=== PATIENT | female | born 1940 | race Caucasian/White ===

== ENCOUNTER 2017-10-20 11:09 | Day surgery (SDC) | payer MEDICARE, OTHER ==
[~2017-10-20] VITALS: Ht 160 cm; Wt 81.3 kg
[~2017-10-20 11:09] MED LIST: ACCU-CHEK COMB1 EACH MC; ACEDIPPM PO; ALBU.083IS IH; ALBU90OI INH; ASPI81CH PO; ASPI81EC; ASPI81EC PO; C PAP; CALC1.25T PO; CARV6.25 PO; CEFP200 PO; CHOL10002 PO; CILO50 PO; CIPR500 PO; CLOB.05TC TP; CLOP75 PO; DIPH50 PO; DOCU100 PO; DULO30 PO; Desyrel50 MG; ENAL10; ENAL10 PO; ESCI10; ESCI10 PO; ESTR.05P SL; ESTR.05PBW TOP; ESTR1; ESTROGEN; ESZO3 PO; FISH1000 PO; FLUC100 PO; FLUSAL1005; FLUSAL1005 IH; FLUSAL2505 IH; FLUSAL2505 INH; FLUZONE HI180 MCG/03; GEMF600; GEMF600 PO; GLUCAGON IM; GLUCOSAMINE1000 MG PO; GLYMET5; HYDACE5 PO; HYDACE5325 PO; HYDCHL25 PO; INS70/30PN; INSDET100 SQ; INSLI100I SC; INSULANI; INSULANI SC; INSULANPEN SC; LEVSOD125; LEVSOD125 PO; LISI20 PO; LOVA20 PO; METF500 PO; MIRAPEX PO; MULTI VITAMIN1 EACH PO; MULTIVITAMIN; MULVIT PO; MULVITA PO; NYST100P TOP; Norco 5-325 Ta1 EACH PO; OXYACE5T PO; PHENA200 PO; POLY500 PO; POTCHL20ER PO; PRAM.5 PO; PRED20 PO; PROG100 PO; PROM25 PO; Percocet 5-3251 EACH PO; SULTRIDS PO; TEMA30 PO; TIMO.5OPG; TIMO.5OPSO OD; TIMO.5OPSO OU; TIOT18 IH; TRAM50 PO; TRAV.004OP OD; TRAV.004OP OU; TRAZ50 PO; [UNRECOGNIZED DRUG - OTHER]
[2017-10-20] MEDS ORDERED: ATOR40TA PO (12:02)
[2017-10-20] MEDS ORDERED: CILO100 PO (12:02)
[2017-10-20] MEDS ORDERED: TRAZ100 PO (12:03)
[2017-10-20] MEDS ORDERED: TIOT18 INH (12:03)
[2017-10-20] MEDS ORDERED: GABA100 PO (12:03)
[2017-10-20] MEDS ORDERED: PHENY30ER PO (12:03)
[2017-10-20] MEDS ORDERED: ALBU90OI6 INH (12:04)
[2017-10-20] MEDS ORDERED: Nitrostat0.4 MG SL (12:04)
[2018-06-12] MEDS ORDERED: FLUT1DIS5 INH (17:59)
[2018-06-12] MEDS ORDERED: GABA300 PO (18:02)
[2018-06-12] MEDS ORDERED: Micro-K10 MEQ PO (18:11)
[2018-06-12] MEDS ORDERED: (None)20 M1 PO (18:12)
[2018-06-12] MEDS ORDERED: TRULICITY0.75 MG/0. SC (18:13)
[2018-06-12] MEDS ORDERED: AZIT250 PO (18:18)
[2018-06-12] MEDS ORDERED: CLOB.05TO TOP (18:19)
== END 2017-10-20 14:12 | disposition home or self-care (01) ==
LOC: ORSCSDS 11:09
PROVIDERS: Podiatrist Foot & Ankle Surgery
PROC: 0QBN0ZZ Excision of Right Metatarsal, Open Approach (ICD-10-PCS; principal; 2017-10-20 12:30)
PROC: 0QBQ0ZZ Excision of Right Toe Phalanx, Open Approach (ICD-10-PCS; principal; 2017-10-20 12:30)
DX: M21.621 Bunionette of right foot (principal); M77.51 Other enthesopathy of right foot and ankle; M79.674 Pain in right toe(s); I10 Essential (primary) hypertension; I25.10 Atherosclerotic heart disease of native coronary artery without angina pectoris; E11.9 Type 2 diabetes mellitus without complications; J44.9 Chronic obstructive pulmonary disease, unspecified; Z95.0 Presence of cardiac pacemaker; E03.9 Hypothyroidism, unspecified; G40.89 Other seizures; Z79.899 Other long term (current) drug therapy; Z79.82 Long term (current) use of aspirin
CPT/HCPCS: 82947; J0171; J0690; J1100; J2250; J2405; J3010; J7120

== ENCOUNTER 2017-12-10 14:22 | Emergency (ER) | payer MEDICARE, OTHER ==
[~2017-12-10] VITALS: Ht 160 cm; Wt 81.7 kg
[~2017-12-10 14:22] MED LIST changes: +ALBU90OI6 INH; +ATOR40TA PO; +CILO100; +GABA100 PO; +Nitrostat0.4 MG SL; +PHENY30ER PO; +TIOT18 INH; +TRAZ100 PO
[2017-12-10 15:10] LABS: BASOPHILS ABSOLUTE AUTO 0.08 K/mm3 (0.00-0.23); BASOPHILS PERCENT AUTO 1 % (0-2); EOSINOPHILS ABSOLUTE AUTO 0.39 K/mm3 (0.00-0.68); EOSINOPHILS PERCENT AUTO 5 % (0-6); Hematocrit 45.9 % (33.0-51.0); Hemoglobin 14.5 g/dL (11.5-16.0); IMMATURE GRAN ABSOLUTE AUTO 0.03 K/mm3 (0.00-0.10); IMMATURE GRAN PERCENT AUTO 0 % (0-1); LYMPHOCYTES PERCENT AUTO 46 % (21-46); MONOCYTES ABSOLUTE AUTO 0.57 K/mm3 (0.16-1.47); MONOCYTES PERCENT AUTO 7 % (4-13); Mean Corpuscular HGB 29.8 pg (26.0-34.0); Mean Corpuscular HGB Conc 31.6 g/dL (31.5-36.5); Mean Corpuscular Volume 94 fL (80-100); NEUTROPHILS ABSOLUTE AUTO 3.55 K/mm3 (1.96-9.15); NEUTROPHILS PERCENT AUTO 42 % (41-73); RDW Coefficient Variation 12.9 % (11.7-14.2); RDW Standard Deviation 44.8 fL (35.1-46.3); Red Blood Cell Count 4.86 M/mm3 (3.80-5.20); White Blood Cell Count 8.52 K/mm3 (4.00-11.30)
[2017-12-10 15:15] LABS: Mean Platelet Volume 10.7 fL (9.1-12.4); Platelet Count 109 K/mm3 (150-400)
[2017-12-10 15:29] LABS: Alanine Aminotransfer (ALT/SGP 31 U/L (12-78); Albumin, Blood 3.3 g/dL (3.4-5.0); Albumin/Globulin Ratio 0.8 (0.8-1.8); Alk Phos 211 U/L (50-136); Anion Gap 8 mmol/L (6-16); Aspartate Aminotrans (AST/SGOT 32 U/L (12-37); Bilirubin, Total 0.3 mg/dL (0.1-1.0); Blood Urea Nitrogen 13 mg/dL (8-24); Bun/Creatinine Ratio 16.5 (12.0-20.0); CO2, Blood 27 mmol/L (21-32); Calcium, Blood 8.6 mg/dL (8.5-10.1); Chloride, Blood 104 mmol/L (98-108); Creatinine, Blood 0.79 mg/dL (0.40-1.00); Glomerular Filtration Rate >60 (60-); Glucose, Blood 165 mg/dL (70-99); Potassium, Blood 4.4 mmol/L (3.5-5.5); Sodium, Blood 139 mmol/L (136-145); Total Protein, Blood 7.3 g/dL (6.4-8.2); Troponin I <0.015 ng/mL (0.000-0.040)
[2017-12-10] MEDS ORDERED: Prednisone20 MG PO (19:00)
== END 2017-12-10 19:29 | disposition home or self-care (01) ==
LOC: ER 14:22
PROVIDERS: Emergency Medicine
DX: J44.1 Chronic obstructive pulmonary disease with (acute) exacerbation (principal); Z88.8 Allergy status to other drugs, medicaments and biological substances; Z79.899 Other long term (current) drug therapy; Z79.82 Long term (current) use of aspirin; Z79.4 Long term (current) use of insulin; Z79.52 Long term (current) use of systemic steroids; Z87.891 Personal history of nicotine dependence; J45.909 Unspecified asthma, uncomplicated; I10 Essential (primary) hypertension; E11.9 Type 2 diabetes mellitus without complications
CPT/HCPCS: 71046; 80053; 83880; 84484; 85025; 93005; 93010; 94640; 96374; 99283; J2930

== ENCOUNTER 2018-02-19 11:45 | Inpatient (IN) | payer MEDICARE, OTHER ==
[~2018-02-19] VITALS: Ht 160 cm; Wt 81.1 kg
[~2018-02-19 11:45] MED LIST changes: -CILO100; +CILO100 PO; +Prednisone20 MG PO
[2018-02-19 12:15] LABS: Calcium, Ionized (POC) 1.14 mmol/L (1.10-1.46); Chloride (POC) 93 mmol/L (98-108); Creatinine (POC) 1.2 mg/dL (0.6-1.0); Glucose (ISTAT POC) 689 mg/dL (70-99); Potassium (POC) 4.2 mmol/L (3.5-5.5); Sodium (POC) 131 mmol/L (135-148); Total CO2 (POC) 17 mmol/L (21-32)
[2018-02-19 12:21] LABS: BASOPHILS ABSOLUTE AUTO 0.06 K/mm3 (0.00-0.23); BASOPHILS PERCENT AUTO 0 % (0-2); EOSINOPHILS PERCENT AUTO 0 % (0-6); Hematocrit 44.4 % (33.0-51.0); Hemoglobin 13.9 g/dL (11.5-16.0); IMMATURE GRAN ABSOLUTE AUTO 0.14 K/mm3 (0.00-0.10); IMMATURE GRAN PERCENT AUTO 1 % (0-1); LYMPHOCYTES ABSOLUTE AUTO 1.01 K/mm3 (0.84-5.20); LYMPHOCYTES PERCENT AUTO 7 % (21-46); MONOCYTES ABSOLUTE AUTO 1.22 K/mm3 (0.16-1.47); MONOCYTES PERCENT AUTO 8 % (4-13); Mean Corpuscular HGB 28.7 pg (26.0-34.0); Mean Corpuscular HGB Conc 31.3 g/dL (31.5-36.5); Mean Corpuscular Volume 92 fL (80-100); Mean Platelet Volume 10.9 fL (9.1-12.4); NEUTROPHILS ABSOLUTE AUTO 12.96 K/mm3 (1.96-9.15); NEUTROPHILS PERCENT AUTO 84 % (41-73); Platelet Count 295 K/mm3 (150-400); RDW Coefficient Variation 13.6 % (11.7-14.2); RDW Standard Deviation 46.2 fL (35.1-46.3); Red Blood Cell Count 4.84 M/mm3 (3.80-5.20); White Blood Cell Count 15.39 K/mm3 (4.00-11.30)
[2018-02-19 12:57] LABS: Albumin, Blood 3.7 g/dL (3.4-5.0); Albumin/Globulin Ratio 0.9 (0.8-1.8); Bilirubin, Total 0.6 mg/dL (0.1-1.0); Bun/Creatinine Ratio 27.3 (12.0-20.0); Calcium, Blood 9.3 mg/dL (8.5-10.1); Creatinine, Blood 1.28 mg/dL (0.40-1.00); Potassium, Blood 4.1 mmol/L (3.5-5.5); Total Protein, Blood 7.7 g/dL (6.4-8.2)
[2018-02-19 13:30] LABS: Beta-hydroxybutyrate 59.5 mg/dL (0.2-2.8)
[2018-02-19 14:31] LABS: Source, Urine Clean Catch
[2018-02-19 14:41] LABS: Appearance, Urine Clear (Clear); Bilirubin, Urine Neg (Neg); Blood, Urine Neg (Neg); Color, Urine Yellow (P-Yellow); Glucose Qualitative, Urine 4+ (Neg); Ketones, Urine 2+ (Neg); Leukocyte Esterase, Urine Neg (Neg); Nitrite, Urine Neg (Neg); Protein, Urine Neg (Neg); Specific Gravity, Urine 1.015 (1.003-1.022); Urobilinogen, Urine NORM (Normal)
[2018-02-19] MEDS ORDERED: CLOB.05TO UD (18:03)
[2018-02-19] MEDS ORDERED: PHENY30ER PO (18:08)
[2018-02-19] MEDS ORDERED: DULO60 PO (18:09)
[2018-02-19] MEDS ORDERED: GABA300 PO (18:10)
[2018-02-19] MEDS ORDERED: Glucagon Emergen1 MG INJ (18:13)
[2018-02-19] MEDS ORDERED: Xalatan2.5 ML BOTHEYES (18:15)
[2018-02-19] MEDS ORDERED: Keppra750 MG PO (18:16)
[2018-02-19] MEDS ORDERED: LEVSOD100 PO (18:17)
[2018-02-19] MEDS ORDERED: Novolog100 UNIT/2 SC (18:22)
[2018-02-19] MEDS ORDERED: POTCIT10 PO (18:24)
[2018-02-19 18:25] LABS: PCO2 Arterial 44.8 mmHg (35-45); PO2 Arterial 73.2 mmHg (80-100); pH Blood Arterial 7.36 (7.35-7.45)
[2018-02-19] MEDS ORDERED: ALBU90OI61 (18:25)
[2018-02-19] MEDS ORDERED: ERGO400 PO (18:28)
[2018-02-19] MEDS ORDERED: DICLOFENAC TOP (18:36)
[2018-02-19 19:04] LABS: Troponin I 0.046 ng/mL (0.000-0.040)
[2018-02-19 19:28] LABS: Calcium, Blood 8.5 mg/dL (8.5-10.1); Creatinine, Blood 1.24 mg/dL (0.40-1.00); Potassium, Blood 4.2 mmol/L (3.5-5.5)
[2018-02-19 23:37] LABS: Bun/Creatinine Ratio 24.1 (12.0-20.0); Calcium, Blood 8.6 mg/dL (8.5-10.1); Creatinine, Blood 1.45 mg/dL (0.40-1.00); Potassium, Blood 4.1 mmol/L (3.5-5.5)
[2018-02-20 04:15] LABS: PCO2 Arterial 47.6 mmHg (35-45); pH Blood Arterial 7.36 (7.35-7.45)
[2018-02-20 04:22] LABS: Bun/Creatinine Ratio 27.6 (12.0-20.0); Calcium, Blood 8.6 mg/dL (8.5-10.1); Creatinine, Blood 1.23 mg/dL (0.40-1.00); Potassium, Blood 3.9 mmol/L (3.5-5.5)
== END 2018-02-20 12:40 | disposition home or self-care (01) | DRG 637 ==
LOC: ER 11:45 → ICUW 16:02 → ICUE 16:02
PROVIDERS: Emergency Medicine; Internal Medicine
DX: E11.10 Type 2 diabetes mellitus with ketoacidosis without coma (principal); G93.41 Metabolic encephalopathy; N17.9 Acute kidney failure, unspecified; G47.33 Obstructive sleep apnea (adult) (pediatric); E66.01 Morbid (severe) obesity due to excess calories; Z68.31 Body mass index [BMI] 31.0-31.9, adult; I25.10 Atherosclerotic heart disease of native coronary artery without angina pectoris; Z95.1 Presence of aortocoronary bypass graft; Z95.0 Presence of cardiac pacemaker; E11.51 Type 2 diabetes mellitus with diabetic peripheral angiopathy without gangrene; E03.9 Hypothyroidism, unspecified; E11.22 Type 2 diabetes mellitus with diabetic chronic kidney disease; N18.3 Chronic kidney disease, stage 3 (moderate); E78.5 Hyperlipidemia, unspecified; G40.909 Epilepsy, unspecified, not intractable, without status epilepticus; Z66 Do not resuscitate; E11.40 Type 2 diabetes mellitus with diabetic neuropathy, unspecified; E86.0 Dehydration; F32.9 Major depressive disorder, single episode, unspecified; E11.65 Type 2 diabetes mellitus with hyperglycemia
CPT/HCPCS: 36415; 36600; 71045; 80047; 80048; 80053; 81003; 82010; 82803; 82947; 83036; 83690; 84484; 85014; 85025; 93005; 93010; 94640; 94660; 96361; 96374; 99285; C9113; J1650; J1815; J2405; J7030; J7042; J7120

== ENCOUNTER 2018-09-12 03:30 | Emergency (ER) | payer MEDICARE, OTHER ==
[~2018-09-12] VITALS: Ht 160 cm; Wt 83.9 kg
[~2018-09-12 03:30] MED LIST changes: +(None)20 M1 PO; +ALBU90OI61; +AZIT250 PO; +CLOB.05TO TOP; +CLOB.05TO UD; +DICLOFENAC TOP; +DULO60 PO; +ERGO400 PO; +FLUT1DIS5 INH; +GABA300 PO; +Glucagon Emergen1 MG INJ; +Keppra750 MG PO; +LEVSOD100 PO; +Micro-K10 MEQ PO; +Novolog100 UNIT/2 SC; +POTCIT10 PO; +TRULICITY0.75 MG/0. SC; +Xalatan2.5 ML BOTHEYES
[2018-09-12 04:01] LABS: BASOPHILS ABSOLUTE AUTO 0.11 K/mm3 (0.00-0.23); BASOPHILS PERCENT AUTO 1 % (0-2); EOSINOPHILS ABSOLUTE AUTO 0.22 K/mm3 (0.00-0.68); EOSINOPHILS PERCENT AUTO 2 % (0-6); Hematocrit 38.2 % (33.0-51.0); Hemoglobin 11.7 g/dL (11.5-16.0); IMMATURE GRAN ABSOLUTE AUTO 0.03 K/mm3 (0.00-0.10); IMMATURE GRAN PERCENT AUTO 0 % (0-1); LYMPHOCYTES ABSOLUTE AUTO 1.57 K/mm3 (0.84-5.20); LYMPHOCYTES PERCENT AUTO 16 % (21-46); MONOCYTES ABSOLUTE AUTO 0.95 K/mm3 (0.16-1.47); MONOCYTES PERCENT AUTO 10 % (4-13); Mean Corpuscular HGB 27.7 pg (26.0-34.0); Mean Corpuscular HGB Conc 30.6 g/dL (31.5-36.5); Mean Corpuscular Volume 90 fL (80-100); Mean Platelet Volume 10.9 fL (9.1-12.4); NEUTROPHILS PERCENT AUTO 70 % (41-73); Platelet Count 172 K/mm3 (150-400); RDW Coefficient Variation 14.1 % (11.7-14.2); RDW Standard Deviation 46.2 fL (35.1-46.3); Red Blood Cell Count 4.23 M/mm3 (3.80-5.20); White Blood Cell Count 9.68 K/mm3 (4.00-11.30)
[2018-09-12 04:17] LABS: Alanine Aminotransfer (ALT/SGP 26 U/L (12-78); Albumin, Blood 3.4 g/dL (3.4-5.0); Alk Phos 179 U/L (50-136); Anion Gap 6 mmol/L (6-16); Aspartate Aminotrans (AST/SGOT 31 U/L (12-37); Bilirubin, Total 0.4 mg/dL (0.1-1.0); Blood Urea Nitrogen 13 mg/dL (8-24); Bun/Creatinine Ratio 20.4 (12.0-20.0); CO2, Blood 29 mmol/L (21-32); Calcium, Blood 8.2 mg/dL (8.5-10.1); Chloride, Blood 105 mmol/L (98-108); Creatinine, Blood 0.64 mg/dL (0.40-1.00); Globulin, Blood 3.5 g/dL (2.2-4.0); Glomerular Filtration Rate >60 (60-); Glucose, Blood 177 mg/dL (70-99); Potassium, Blood 3.5 mmol/L (3.5-5.5); Sodium, Blood 140 mmol/L (136-145); Total Protein, Blood 6.9 g/dL (6.4-8.2); Troponin I 0.018 ng/mL (0.000-0.040)
== END 2018-09-12 07:20 | disposition home or self-care (01) ==
LOC: ER 03:30
PROVIDERS: Emergency Medicine
DX: R07.9 Chest pain, unspecified (principal); R05 Cough; Z88.6 Allergy status to analgesic agent; Z88.8 Allergy status to other drugs, medicaments and biological substances; Z79.82 Long term (current) use of aspirin; Z79.4 Long term (current) use of insulin; Z79.899 Other long term (current) drug therapy
CPT/HCPCS: 71046; 80053; 83690; 83880; 84484; 85025; 93005; 93010; 94640; 99285-25